=== PATIENT | male | born 1950 | race Caucasian/White ===

== ENCOUNTER 2022-06-25 10:02 | Inpatient (IN) | payer MEDICARE, OTHER ==
[2022-06-25 11:34] LABS: Hemoglobin 14.7 g/dL (13.5-17.5); MDiff Complete? YES; Mean Corpuscular Hemoglobin 31.3 pg (27.0-33.0); Mean Corpuscular Volume 91.9 fl (81.2-95.1); Mean Platelet Volume 11.3 fl (7.4-10.4); Platelet Count 178 10x3/uL (150-450); RBC Distribution Width 13.7 % (11.5-14.5); White Blood Cell (WBC) Count 15.2 10x3/uL (3.5-10.5)
[2022-06-25 11:37] LABS: Bilirubin 3+ (Negative); Blood, Urine 10 (Negative); Clarity Clear (Clear); Glucose, Urine (Dipstick) Normal (Negative); Ketone, Urine 50 mg/dL (Negative); Leukocyte 25 (Negative); Nitrite Negative (Negative); Protein, Urine (Dipstick) 100 mg/dl (Neg-Trace)
[2022-06-25 11:51] LABS: ALT (SGPT) 1135 U/L (8-55); AST (SGOT) 616 U/L (5-34); Albumin 3.9 g/dL (3.4-4.8); Alkaline Phosphatase 283 U/L (40-110); Anion Gap 16 mmol/L (10-20); BUN (Urea Nitrogen) 23 mg/dL (8.4-25.7); Bilirubin, Total 4.9 mg/dL (0.2-1.2); CK (CPK) 118 U/L (30-200); Calc. Creatinine Clearance 0 mL/min (70-130); Calcium 8.4 mg/dL (7.8-10.44); Carbon Dioxide 26 mmol/L (23-31); Chloride 98 mmol/L (98-107); Estimated GFR 85; Globulin 2.3 g/dL (2.4-3.5); Glucose 96 mg/dL (80-115); Lipase 26 U/L (8-78); Protein, Total 6.2 g/dL (5.8-8.1); Sodium 136 mmol/L (136-145)
[2022-06-25 11:59] LABS: SARS-CoV-2 NAA Rapid Test Not Detected (NotDetected)
[2022-06-25 12:06] LABS: Bacteria/HPF Rare-Few HPF (None Seen); RBC/HPF 0-3 HPF (0-3); Squamous Epithelial 0-3 HPF (0-3)
[2022-06-25 12:07] LABS: Sperm/HPF 1+ HPF (None Seen)
[2022-06-25 12:14] LABS: Band 2 % (5-11); Eosinophils 1 % (0-10); Lymphocytes 4 % (21-51); Monocytes 2 % (0-10); Neutrophil 91 % (42-75); Platelet Morphology Comment Appears Adequate
[2022-06-25 12:38] LABS: Acetaminophen Less than 10.0 mcg/mL (10.0-30.0); Alcohol Less than 10 mg/dL (Less than 10); Salicylate Less than 8.0 mg/dL (15.0-30.0)
[2022-06-25] MEDS ORDERED: Ondansetron PF 4 MG/2 ML Vial ONE (13:19)
[2022-06-25] MEDS ORDERED: Iopamidol 300 61% 100 ML VIAL FS ONE (13:37)
[2022-06-25 15:17] LABS: INR-International Normal Ratio 1.3; Prothrombin Time 13.5 sec (9.5-12.1)
[2022-06-25] MEDS ORDERED: Bisacodyl 10 MG SUPP PR SCH (17:45)
[2022-06-25 18:14] VITALS: BMI 29.0
[2022-06-25] MEDS: Sodium Chloride 0.9% 1,000 ML IV SCH (18:52)
[2022-06-25] MEDS: Ondansetron PF 4 MG/2 ML Vial IVP PRN (19:00)
[2022-06-25] MEDS ORDERED: FLU VACC QS2022-23(65YR UP)/PF 240 MCG/0.7 ML SYRINGE IM ONE (19:45)
[2022-06-25 19:55] LABS: Iron 19 ug/dL (65-175); Iron Binding Capacity, Total 269 mcg/dL (261-462)
[2022-06-25] MEDS ORDERED: Acetaminophen/Codeine 30-300mg Tablet PO PRN ×2 (20:47)
[2022-06-25] MEDS: HYDROcodone/Acetaminophen 10/325 mg Tablet PO PRN (21:53)
[2022-06-25] MEDS ORDERED: Amlodipine 5 MG TAB PO SCH (22:00)
[2022-06-25 23:42] LABS: HBCM Index 0.05 S/CO (0-0.79); HBSAg Index 0.25 S/CO (0-0.99); Hep A IgM AB Non-Reactive (NonReactive); Hep A IgM S/CO 0.12 S/CO (0-0.79); Hep B Surf Ag Non-Reactive S/CO (NonReactive); Hep C IgG Ab Non-Reactive (NonReactive); Hep C Index 0.05 S/CO (0-0.79); Hepatitis B Core IgM Abs Non-Reactive (NonReactive)
[2022-06-26 05:09] LABS: INR-International Normal Ratio 1.1; Prothrombin Time 11.9 sec (9.5-12.1)
[2022-06-26 05:17] LABS: ALT (SGPT) 837 U/L (8-55); AST (SGOT) 315 U/L (5-34); Alkaline Phosphatase 294 U/L (40-110); Anion Gap 17 mmol/L (10-20); BUN (Urea Nitrogen) 12 mg/dL (8.4-25.7); Bilirubin, Total 3.3 mg/dL (0.2-1.2); Calc. Creatinine Clearance 102 mL/min (70-130); Calcium 9.5 mg/dL (7.8-10.44); Carbon Dioxide 26 mmol/L (23-31); Chloride 96 mmol/L (98-107); Estimated GFR 98; Globulin 3.6 g/dL (2.4-3.5); Glucose 96 mg/dL (80-115); Potassium 3.5 mmol/L (3.5-5.1); Protein, Total 7.6 g/dL (5.8-8.1); Sodium 135 mmol/L (136-145)
[2022-06-26 05:37] LABS: #Neutrophils 13.8 10x3/uL (1.5-8.4); %Basophils 0.1 % (0.0-2.0); %Eosinophils 0.1 % (0.0-6.0); %Lymphocytes 3.3 % (18.0-47.0); %Monocytes 6.7 % (0.0-10.0); %Neutrophils 89.3 % (40.0-75.0); Hemoglobin 15.8 g/dL (13.5-17.5); Mean Corpuscular HGB CONC 34.6 g/dL (32.0-36.0); Mean Corpuscular Hemoglobin 31.6 pg (27.0-33.0); Mean Corpuscular Volume 91.2 fl (81.2-95.1); Mean Platelet Volume 11.7 fl (7.4-10.4); Platelet Count 153 10x3/uL (150-450); RBC Distribution Width 13.8 % (11.5-14.5); White Blood Cell (WBC) Count 15.5 10x3/uL (3.5-10.5)
[2022-06-26] MEDS: Sodium Chloride 0.9% 1,000 ML IV SCH (05:45)
[2022-06-26] MEDS: HYDROcodone/Acetaminophen 10/325 mg Tablet PO PRN ×2 (05:47→10:18)
[2022-06-26] MEDS ORDERED: hydrALAZINE 20 MG/ML VIAL SLOW IVP SCH (06:30)
[2022-06-26] MEDS: Ondansetron ODT 4 MG TAB PO PRN (10:25)
[2022-06-26] MEDS ORDERED: Communication Order-Pharmacy FS SCH (10:45)
[2022-06-26] MEDS ORDERED: Amlodipine 5 MG TAB PO SCH (10:45)
[2022-06-26] MEDS: cefTRIAXone\\ROCEPHIN 1 GM in Sodium Chloride 0.9% 100 ML IVPB SCH (12:22)
[2022-06-26 16:56] LABS: ANA Symphony (Qualitative) Negative (Negative); ANA Symphony (Quantitative) 0.3 Ratio (< 0.7 Negative); EliA Vaculitis New Method **** NEW METHOD ****; Mitochondrial Ab 1.2 U/mL (<4 Negative); dsDNA IgG Antibody 0.5 IU/mL (<10 Negative)
[2022-06-26] MEDS: Morphine 2 MG/ML VIAL SLOW IVP PRN (17:21)
[2022-06-26] MEDS: Metoprolol Tartrate 50 MG TAB PO SCH (21:14)
[2022-06-26] MEDS ORDERED: Bisacodyl 10 MG SUPP PR SCH (22:30)
[2022-06-27] MEDS: Sodium Chloride 0.9% 1,000 ML IV SCH ×2 (00:08→17:34)
[2022-06-27] MEDS ORDERED: diphenhydrAMINE 25 MG CAP PO SCH (02:45)
[2022-06-27 06:07] LABS: INR-International Normal Ratio 1.1; Prothrombin Time 11.6 sec (9.5-12.1)
[2022-06-27 06:08] LABS: ALT (SGPT) 402 U/L (8-55); AST (SGOT) 78 U/L (5-34); Albumin 3.4 g/dL (3.4-4.8); Alkaline Phosphatase 231 U/L (40-110); Anion Gap 16 mmol/L (10-20); BUN (Urea Nitrogen) 10 mg/dL (8.4-25.7); Calc. Creatinine Clearance 113 mL/min (70-130); Carbon Dioxide 26 mmol/L (23-31); Chloride 99 mmol/L (98-107); Estimated GFR 101; Globulin 2.9 g/dL (2.4-3.5); Glucose 106 mg/dL (80-115); Potassium 3.6 mmol/L (3.5-5.1); Protein, Total 6.3 g/dL (5.8-8.1); Sodium 137 mmol/L (136-145)
[2022-06-27 06:22] LABS: Hemoglobin 14.1 g/dL (13.5-17.5); Mean Corpuscular HGB CONC 35.3 g/dL (32.0-36.0); Mean Corpuscular Hemoglobin 31.5 pg (27.0-33.0); Mean Corpuscular Volume 89.5 fl (81.2-95.1); Mean Platelet Volume 11.8 fl (7.4-10.4); Platelet Count 166 10x3/uL (150-450); RBC Distribution Width 13.8 % (11.5-14.5); Red Blood Cell (RBC) Count 4.47 10x6/uL (4.32-5.72); White Blood Cell (WBC) Count 20.4 10x3/uL (3.5-10.5)
[2022-06-27 06:54] LABS: MDiff Complete? YES
[2022-06-27 06:57] LABS: Band 5 % (5-11); Lymphocytes 3 % (21-51); Monocytes 6 % (0-10); Neutrophil 85 % (42-75); Platelet Morphology Comment Appears Adequate; Reactive Lymphocytes 1 % (0-10)
[2022-06-27 06:58] LABS: RBC Morphology Normal
[2022-06-27] MEDS: cefTRIAXone\\ROCEPHIN 1 GM in Sodium Chloride 0.9% 100 ML IVPB SCH (09:49)
[2022-06-27] MEDS: Morphine 2 MG/ML VIAL SLOW IVP PRN ×3 (09:50→20:42)
[2022-06-27] MEDS: Ondansetron PF 4 MG/2 ML Vial IVP PRN (09:52)
[2022-06-27] MEDS: Amlodipine 5 MG TAB PO SCH (09:52)
[2022-06-27] MEDS: Metoprolol Tartrate 50 MG TAB PO SCH ×2 (09:52→20:43)
[2022-06-27] MEDS: cloNIDine 0.1 MG TAB PO SCH ×2 (09:53→20:43)
[2022-06-27] MEDS: metFORMIN 500 MG TAB PO SCH ×2 (09:53→17:34)
[2022-06-27] MEDS ORDERED: Cepastat Lozenges 1 LOZ PO PRN (11:10)
[2022-06-28] MEDS: Sodium Chloride 0.9% 1,000 ML IV SCH ×3 (02:38→22:04)
[2022-06-28] MEDS: Morphine 2 MG/ML VIAL SLOW IVP PRN ×4 (03:20→22:04)
[2022-06-28 05:53] LABS: INR-International Normal Ratio 1.1; Mean Corpuscular HGB CONC 34.8 g/dL (32.0-36.0); Mean Corpuscular Hemoglobin 31.3 pg (27.0-33.0); Mean Corpuscular Volume 89.9 fl (81.2-95.1); Mean Platelet Volume 11.4 fl (7.4-10.4); Platelet Count 180 10x3/uL (150-450); Prothrombin Time 11.6 sec (9.5-12.1); RBC Distribution Width 14.3 % (11.5-14.5); Red Blood Cell (RBC) Count 4.16 10x6/uL (4.32-5.72); White Blood Cell (WBC) Count 21.1 10x3/uL (3.5-10.5)
[2022-06-28 06:13] LABS: ALT (SGPT) 239 U/L (8-55); AST (SGOT) 45 U/L (5-34); Albumin 3.1 g/dL (3.4-4.8); Alkaline Phosphatase 219 U/L (40-110); Anion Gap 14 mmol/L (10-20); BUN (Urea Nitrogen) 12 mg/dL (8.4-25.7); Calc. Creatinine Clearance 110 mL/min (70-130); Calcium 8.7 mg/dL (7.8-10.44); Carbon Dioxide 25 mmol/L (23-31); Chloride 102 mmol/L (98-107); Estimated GFR 100; Globulin 3.3 g/dL (2.4-3.5); Glucose 99 mg/dL (80-115); Potassium 3.4 mmol/L (3.5-5.1); Protein, Total 6.4 g/dL (5.8-8.1); Sodium 138 mmol/L (136-145)
[2022-06-28 06:27] LABS: MDiff Complete? YES
[2022-06-28 06:30] LABS: Band 5 % (5-11); Lymphocytes 5 % (21-51); Monocytes 10 % (0-10); Neutrophil 80 % (42-75)
[2022-06-28 06:31] LABS: Platelet Morphology Comment Appears Adequate
[2022-06-28 06:32] LABS: RBC Morphology Normal
[2022-06-28] MEDS: cefTRIAXone\\ROCEPHIN 1 GM in Sodium Chloride 0.9% 100 ML IVPB SCH (10:07)
[2022-06-28] MEDS: metFORMIN 500 MG TAB PO SCH ×2 (10:09→16:59)
[2022-06-28] MEDS: Amlodipine 5 MG TAB PO SCH (10:09)
[2022-06-28] MEDS: cloNIDine 0.1 MG TAB PO SCH ×2 (10:10→22:05)
[2022-06-28] MEDS: Metoprolol Tartrate 50 MG TAB PO SCH ×2 (10:10→22:05)
[2022-06-28] MEDS: Ondansetron PF 4 MG/2 ML Vial IVP PRN ×3 (10:11→22:20)
[2022-06-28 12:15] LABS: EBV VCA IgM <36.0 U/mL (0.0-35.9); Nuclear AG IgG (EBNA) AB >600.0 U/mL (0.0-17.9)
[2022-06-28 20:13] LABS: CMV DNA-PCR Test Negative (Negative)
[2022-06-28] MEDS ORDERED: Sodium Chloride 0.65% Nasal 44 ML BOT EA NARE PRN (23:56)
[2022-06-29] MEDS: Piperacillin/Tazobactam 3.375 GM in Sodium Chloride 0.9% 100 ML IVPB SCH ×3 (00:48→16:52)
[2022-06-29] MEDS: Morphine 2 MG/ML VIAL SLOW IVP PRN ×4 (03:48→20:43)
[2022-06-29] MEDS: Ondansetron ODT 4 MG TAB PO PRN ×2 (03:54→17:02)
[2022-06-29] MEDS ORDERED: hydrALAZINE 20 MG/ML VIAL SLOW IVP PRN ×2 (04:16→11:54)
[2022-06-29 04:55] LABS: #Eosinphils 0.1 10x3/uL (0.0-0.5); #Monocytes 1.7 10x3/uL (0.0-1.1); #Neutrophils 16.1 10x3/uL (1.5-8.4); %Basophils 0.1 % (0.0-2.0); %Eosinophils 0.5 % (0.0-6.0); %Lymphocytes 4.5 % (18.0-47.0); %Neutrophils 83.4 % (40.0-75.0); Hemoglobin 12.5 g/dL (13.5-17.5); Mean Corpuscular HGB CONC 34.8 g/dL (32.0-36.0); Mean Corpuscular Hemoglobin 31.5 pg (27.0-33.0); Mean Corpuscular Volume 90.4 fl (81.2-95.1); Mean Platelet Volume 11.3 fl (7.4-10.4); Platelet Count 225 10x3/uL (150-450); RBC Distribution Width 14.5 % (11.5-14.5); Red Blood Cell (RBC) Count 3.97 10x6/uL (4.32-5.72); White Blood Cell (WBC) Count 19.3 10x3/uL (3.5-10.5)
[2022-06-29 04:59] LABS: ALT (SGPT) 184 U/L (8-55); AST (SGOT) 47 U/L (5-34); Albumin 3.1 g/dL (3.4-4.8); Alkaline Phosphatase 237 U/L (40-110); Anion Gap 12 mmol/L (10-20); BUN (Urea Nitrogen) 11 mg/dL (8.4-25.7); Bilirubin, Total 1.8 mg/dL (0.2-1.2); Calc. Creatinine Clearance 120 mL/min (70-130); Calcium 8.7 mg/dL (7.8-10.44); Carbon Dioxide 29 mmol/L (23-31); Chloride 96 mmol/L (98-107); Estimated GFR 103; Globulin 3.4 g/dL (2.4-3.5); Glucose 98 mg/dL (80-115); Potassium 3.3 mmol/L (3.5-5.1); Protein, Total 6.5 g/dL (5.8-8.1); Sodium 134 mmol/L (136-145)
[2022-06-29 07:28] LABS: Magnesium 1.6 mg/dL (1.6-2.6); Phosphorus 2.1 mg/dL (2.3-4.7)
[2022-06-29] MEDS ORDERED: Potassium Chloride 20 MEQ in Premix Bag 1 BAG IVPB SCH (08:00)
[2022-06-29] MEDS: Amlodipine 5 MG TAB PO SCH (10:25)
[2022-06-29] MEDS: metFORMIN 500 MG TAB PO SCH ×2 (10:26→17:38)
[2022-06-29] MEDS: Metoprolol Tartrate 50 MG TAB PO SCH ×2 (10:26→20:42)
[2022-06-29] MEDS: Polyethylene Glycol 3350 17 GM Packet PO SCH (10:27)
[2022-06-29] MEDS: cloNIDine 0.1 MG TAB PO SCH ×3 (10:30→20:43)
[2022-06-29] MEDS: Ondansetron PF 4 MG/2 ML Vial IVP PRN (10:48)
[2022-06-29] MEDS ORDERED: Labetalol HCl 100 MG/20 ML VIAL SLOW IVP PRN (11:54)
[2022-06-29] MEDS ORDERED: Moisturizing Cream (Eucerin) 113 GM JAR TOP PRN (11:54)
[2022-06-29] MEDS ORDERED: Artificial Tear Sol 15 ML BOT EA EYE PRN (11:54)
[2022-06-29] MEDS ORDERED: Electrolyte Replacement Protocol 1 EACH FS SCH (12:00)
[2022-06-29] MEDS ORDERED: Magnesium 2 GM/50 ML(in water) 2 GM in Premix Bag 1 BAG IVPB SCH (12:30)
[2022-06-29] MEDS: Enoxaparin Sodium 40 MG/0.4 ML SYRINGE SC SCH (20:42)
[2022-06-30 04:32] LABS: ALT (SGPT) 137 U/L (8-55); AST (SGOT) 52 U/L (5-34); Albumin 2.9 g/dL (3.4-4.8); Alkaline Phosphatase 222 U/L (40-110); Anion Gap 14 mmol/L (10-20); BUN (Urea Nitrogen) 15 mg/dL (8.4-25.7); Bilirubin, Total 1.6 mg/dL (0.2-1.2); Calc. Creatinine Clearance 116 mL/min (70-130); Calcium 8.5 mg/dL (7.8-10.44); Carbon Dioxide 24 mmol/L (23-31); Chloride 101 mmol/L (98-107); Estimated GFR 102; Globulin 3.3 g/dL (2.4-3.5); Glucose 96 mg/dL (80-115); Potassium 3.8 mmol/L (3.5-5.1); Protein, Total 6.2 g/dL (5.8-8.1); Sodium 135 mmol/L (136-145)
[2022-06-30] MEDS ORDERED: Sodium Chloride 0.9% 100 ML ONE (04:44)
[2022-06-30 04:51] LABS: #Eosinphils 0.1 10x3/uL (0.0-0.5); #Monocytes 1.7 10x3/uL (0.0-1.1); #Neutrophils 14.9 10x3/uL (1.5-8.4); %Basophils 0.2 % (0.0-2.0); %Eosinophils 0.5 % (0.0-6.0); %Lymphocytes 6.7 % (18.0-47.0); %Monocytes 9.1 % (0.0-10.0); %Neutrophils 80.3 % (40.0-75.0); Hemoglobin 11.4 g/dL (13.5-17.5); Mean Corpuscular HGB CONC 34.7 g/dL (32.0-36.0); Mean Corpuscular Hemoglobin 31.4 pg (27.0-33.0); Mean Corpuscular Volume 90.6 fl (81.2-95.1); Mean Platelet Volume 11.1 fl (7.4-10.4); Platelet Count 268 10x3/uL (150-450); RBC Distribution Width 14.4 % (11.5-14.5); Red Blood Cell (RBC) Count 3.63 10x6/uL (4.32-5.72); White Blood Cell (WBC) Count 18.6 10x3/uL (3.5-10.5)
[2022-06-30] MEDS ORDERED: Magnesium 2 GM/50 ML(in water) 2 GM in Premix Bag 1 BAG IVPB SCH (05:00)
[2022-06-30] MEDS: Sodium Chloride 0.9% 1,000 ML IV SCH ×3 (05:00→10:13)
[2022-06-30] MEDS: Piperacillin/Tazobactam 3.375 GM in Sodium Chloride 0.9% 100 ML IVPB SCH ×4 (05:01→22:31)
[2022-06-30] MEDS: Morphine 2 MG/ML VIAL SLOW IVP PRN ×2 (09:59→22:32)
[2022-06-30] MEDS: Metoprolol Tartrate 50 MG TAB PO SCH ×2 (10:01→22:32)
[2022-06-30] MEDS: Amlodipine 5 MG TAB PO SCH (10:03)
[2022-06-30] MEDS: cloNIDine 0.1 MG TAB PO SCH ×3 (10:03→22:31)
[2022-06-30] MEDS: Polyethylene Glycol 3350 17 GM Packet PO SCH ×2 (10:04→10:05)
[2022-06-30] MEDS: metFORMIN 500 MG TAB PO SCH ×2 (11:55→16:14)
[2022-06-30 17:14] LABS: Hepatitis E Virus IgG ABS Negative (Negative)
[2022-06-30] MEDS: clonazePAM 1 MG TAB PO PRN (18:30)
[2022-06-30] MEDS: Benzonatate 100 MG CAP PO PRN (22:32)
[2022-06-30] MEDS: Ondansetron PF 4 MG/2 ML Vial IVP PRN (22:32)
[2022-06-30] MEDS: Enoxaparin Sodium 40 MG/0.4 ML SYRINGE SC SCH (22:32)
[2022-07-01] MEDS: Morphine 2 MG/ML VIAL SLOW IVP PRN ×2 (03:35→14:27)
[2022-07-01] MEDS: Ondansetron PF 4 MG/2 ML Vial IVP PRN ×2 (03:36→14:27)
[2022-07-01] MEDS: Sodium Chloride 0.9% 1,000 ML IV SCH ×2 (03:36→20:31)
[2022-07-01 05:34] LABS: ALT (SGPT) 126 U/L (8-55); AST (SGOT) 67 U/L (5-34); Albumin 2.9 g/dL (3.4-4.8); Alkaline Phosphatase 242 U/L (40-110); Anion Gap 13 mmol/L (10-20); BUN (Urea Nitrogen) 13 mg/dL (8.4-25.7); Bilirubin, Total 1.4 mg/dL (0.2-1.2); Calc. Creatinine Clearance 120 mL/min (70-130); Calcium 8.6 mg/dL (7.8-10.44); Carbon Dioxide 27 mmol/L (23-31); Chloride 102 mmol/L (98-107); Estimated GFR 103; Globulin 3.2 g/dL (2.4-3.5); Glucose 99 mg/dL (80-115); Magnesium 1.8 mg/dL (1.6-2.6); Potassium 4.1 mmol/L (3.5-5.1); Protein, Total 6.1 g/dL (5.8-8.1); Sodium 138 mmol/L (136-145)
[2022-07-01 05:36] LABS: INR-International Normal Ratio 1.1; PTT 30.1 sec (22.0-33.0); Prothrombin Time 11.6 sec (9.5-12.1)
[2022-07-01 05:48] LABS: #Basophils 0.1 10x3/uL (0.0-0.2); #Eosinphils 0.1 10x3/uL (0.0-0.5); #Monocytes 1.6 10x3/uL (0.0-1.1); #Neutrophils 16.6 10x3/uL (1.5-8.4); %Basophils 0.3 % (0.0-2.0); %Eosinophils 0.7 % (0.0-6.0); %Lymphocytes 5.7 % (18.0-47.0); %Neutrophils 83.1 % (40.0-75.0); Hemoglobin 11.1 g/dL (13.5-17.5); Mean Corpuscular HGB CONC 34.3 g/dL (32.0-36.0); Mean Corpuscular Hemoglobin 31.3 pg (27.0-33.0); Mean Corpuscular Volume 91.3 fl (81.2-95.1); Mean Platelet Volume 11.4 fl (7.4-10.4); Platelet Count 337 10x3/uL (150-450); RBC Distribution Width 14.6 % (11.5-14.5); Red Blood Cell (RBC) Count 3.55 10x6/uL (4.32-5.72)
[2022-07-01] MEDS ORDERED: Magnesium 2 GM/50 ML(in water) 2 GM in Premix Bag 1 BAG IVPB SCH (06:00)
[2022-07-01] MEDS ORDERED: Fentanyl 100 MCG/2 ML VIAL ONE (08:15)
[2022-07-01] MEDS ORDERED: Midazolam HCl 2 mg/2 ml Vial ONE (08:15)
[2022-07-01] MEDS ORDERED: Sodium Bicarbonate 2.5 MEQ/5 ML VIAL ONE (08:18)
[2022-07-01] MEDS: Amlodipine 5 MG TAB PO SCH (09:59)
[2022-07-01] MEDS: Bupropion 150 MG XL TAB PO SCH (09:59)
[2022-07-01] MEDS: metFORMIN 500 MG TAB PO SCH ×2 (09:59→16:07)
[2022-07-01] MEDS: Benzonatate 100 MG CAP PO PRN (10:00)
[2022-07-01] MEDS: Piperacillin/Tazobactam 3.375 GM in Sodium Chloride 0.9% 100 ML IVPB SCH ×3 (10:00→23:14)
[2022-07-01] MEDS: cloNIDine 0.1 MG TAB PO SCH ×3 (10:00→20:35)
[2022-07-01] MEDS: Metoprolol Tartrate 50 MG TAB PO SCH ×2 (10:00→20:35)
[2022-07-01] MEDS: Polyethylene Glycol 3350 17 GM Packet PO SCH (10:11)
[2022-07-01] MEDS: Enoxaparin Sodium 40 MG/0.4 ML SYRINGE SC SCH (20:32)
[2022-07-01] MEDS ORDERED: Loperamide HCl 2 MG CAP PO SCH (23:15)
[2022-07-02] MEDS: Ondansetron PF 4 MG/2 ML Vial IVP PRN ×3 (01:17→21:11)
[2022-07-02] MEDS: GUAIFENESIN SF SOLN 200 MG/10 ML UDCUP PO PRN (01:27)
[2022-07-02 04:18] LABS: ALT (SGPT) 121 U/L (8-55); AST (SGOT) 65 U/L (5-34); Alkaline Phosphatase 253 U/L (40-110); Anion Gap 15 mmol/L (10-20); BUN (Urea Nitrogen) 9 mg/dL (8.4-25.7); Bilirubin, Total 1.2 mg/dL (0.2-1.2); Calc. Creatinine Clearance 136 mL/min (70-130); Calcium 8.9 mg/dL (7.8-10.44); Carbon Dioxide 25 mmol/L (23-31); Chloride 100 mmol/L (98-107); Estimated GFR 107; Globulin 3.5 g/dL (2.4-3.5); Glucose 99 mg/dL (80-115); Magnesium 1.7 mg/dL (1.6-2.6); Potassium 3.4 mmol/L (3.5-5.1); Protein, Total 6.5 g/dL (5.8-8.1); Sodium 137 mmol/L (136-145)
[2022-07-02] MEDS ORDERED: Magnesium 2 GM/50 ML(in water) 2 GM in Premix Bag 1 BAG IVPB SCH (05:00)
[2022-07-02] MEDS ORDERED: Potassium Chloride 20 MEQ TAB PO SCH (05:00)
[2022-07-02] MEDS ORDERED: Vancomycin 1.5 GRAM/300 ML BAG 1.5 GM in Premix Bag 1 BAG IVPB SCH (08:00)
[2022-07-02] MEDS: Morphine 2 MG/ML VIAL SLOW IVP PRN ×2 (08:06→13:05)
[2022-07-02] MEDS: Metoprolol Tartrate 50 MG TAB PO SCH ×2 (08:07→20:34)
[2022-07-02] MEDS: Amlodipine 5 MG TAB PO SCH (08:07)
[2022-07-02] MEDS: cloNIDine 0.1 MG TAB PO SCH ×3 (08:07→20:35)
[2022-07-02] MEDS: metFORMIN 500 MG TAB PO SCH ×2 (08:07→14:59)
[2022-07-02] MEDS: Piperacillin/Tazobactam 3.375 GM in Sodium Chloride 0.9% 100 ML IVPB SCH ×2 (08:07→14:59)
[2022-07-02] MEDS: Bupropion 150 MG XL TAB PO SCH (08:07)
[2022-07-02] MEDS: Losartan 25 MG TAB PO SCH ×2 (08:08→20:35)
[2022-07-02] MEDS: Polyethylene Glycol 3350 17 GM Packet PO SCH (08:08)
[2022-07-02] MEDS ORDERED: Vancomycin 1 GM in Premix Bag 1 BAG IVPB SCH (09:00)
[2022-07-02 13:51] LABS: #Basophils 0.1 10x3/uL (0.0-0.2); #Eosinphils 0.2 10x3/uL (0.0-0.5); #Monocytes 1.3 10x3/uL (0.0-1.1); #Neutrophils 14.8 10x3/uL (1.5-8.4); %Basophils 0.4 % (0.0-2.0); %Eosinophils 1.1 % (0.0-6.0); %Lymphocytes 7.8 % (18.0-47.0); %Monocytes 6.9 % (0.0-10.0); %Neutrophils 81.3 % (40.0-75.0); Hemoglobin 12.2 g/dL (13.5-17.5); Mean Corpuscular HGB CONC 33.8 g/dL (32.0-36.0); Mean Corpuscular Hemoglobin 31.7 pg (27.0-33.0); Mean Corpuscular Volume 93.8 fl (81.2-95.1); Mean Platelet Volume 11.7 fl (7.4-10.4); Platelet Count 427 10x3/uL (150-450); RBC Distribution Width 15.2 % (11.5-14.5); Red Blood Cell (RBC) Count 3.85 10x6/uL (4.32-5.72); White Blood Cell (WBC) Count 18.2 10x3/uL (3.5-10.5)
[2022-07-02] MEDS: Vancomycin HCl 1 GM in Sodium Chloride 0.9% 250 ML 250 ML IVPB SCH (20:33)
[2022-07-02] MEDS: Enoxaparin Sodium 40 MG/0.4 ML SYRINGE SC SCH (20:48)
[2022-07-02] MEDS: Melatonin 3 MG TAB PO PRN (21:11)
[2022-07-03] MEDS: Piperacillin/Tazobactam 3.375 GM in Sodium Chloride 0.9% 100 ML IVPB SCH ×3 (00:29→15:00)
[2022-07-03] MEDS: Morphine 2 MG/ML VIAL SLOW IVP PRN ×4 (04:17→21:14)
[2022-07-03] MEDS: Ondansetron PF 4 MG/2 ML Vial IVP PRN (04:21)
[2022-07-03] MEDS: Vancomycin HCl 1 GM in Sodium Chloride 0.9% 250 ML 250 ML IVPB SCH ×2 (09:03→21:05)
[2022-07-03] MEDS: Metoprolol Tartrate 50 MG TAB PO SCH ×2 (09:04→21:08)
[2022-07-03] MEDS: cloNIDine 0.1 MG TAB PO SCH ×3 (09:04→21:06)
[2022-07-03] MEDS: clonazePAM 1 MG TAB PO PRN (09:04)
[2022-07-03] MEDS: Amlodipine 5 MG TAB PO SCH (09:04)
[2022-07-03] MEDS: Losartan 25 MG TAB PO SCH ×2 (09:04→21:08)
[2022-07-03] MEDS: metFORMIN 500 MG TAB PO SCH (09:04)
[2022-07-03] MEDS: Bupropion 150 MG XL TAB PO SCH (09:04)
[2022-07-03] MEDS: Polyethylene Glycol 3350 17 GM Packet PO SCH (09:05)
[2022-07-03 09:29] LABS: #Basophils 0.1 10x3/uL (0.0-0.2); #Eosinphils 0.2 10x3/uL (0.0-0.5); #Monocytes 0.9 10x3/uL (0.0-1.1); #Neutrophils 11.1 10x3/uL (1.5-8.4); %Basophils 0.4 % (0.0-2.0); %Eosinophils 1.7 % (0.0-6.0); %Lymphocytes 9.7 % (18.0-47.0); %Monocytes 6.2 % (0.0-10.0); %Neutrophils 79.6 % (40.0-75.0); Hemoglobin 11.6 g/dL (13.5-17.5); Mean Corpuscular HGB CONC 34.6 g/dL (32.0-36.0); Mean Corpuscular Hemoglobin 31.5 pg (27.0-33.0); Platelet Count 527 10x3/uL (150-450); RBC Distribution Width 14.6 % (11.5-14.5); Red Blood Cell (RBC) Count 3.68 10x6/uL (4.32-5.72)
[2022-07-03 09:48] LABS: Magnesium 1.6 mg/dL (1.6-2.6); Phosphorus 3.1 mg/dL (2.3-4.7)
[2022-07-03 09:50] LABS: ALT (SGPT) 155 U/L (8-55); AST (SGOT) 78 U/L (5-34); Albumin 2.8 g/dL (3.4-4.8); Alkaline Phosphatase 283 U/L (40-110); Anion Gap 16 mmol/L (10-20); BUN (Urea Nitrogen) 11 mg/dL (8.4-25.7); Bilirubin, Total 0.9 mg/dL (0.2-1.2); Calc. Creatinine Clearance 116 mL/min (70-130); Calcium 8.5 mg/dL (7.8-10.44); Carbon Dioxide 23 mmol/L (23-31); Chloride 102 mmol/L (98-107); Estimated GFR 102; Globulin 3.2 g/dL (2.4-3.5); Glucose 134 mg/dL (80-115); Sodium 137 mmol/L (136-145)
[2022-07-03] MEDS ORDERED: Magnesium 2 GM/50 ML(in water) 2 GM in Premix Bag 1 BAG IVPB SCH (10:00)
[2022-07-03] MEDS: Lactated Ringer's 1,000 ML IV SCH (10:32)
[2022-07-03 20:25] LABS: Vancomycin, Trough 10.4 ug/mL
[2022-07-03] MEDS: Enoxaparin Sodium 40 MG/0.4 ML SYRINGE SC SCH (21:06)
[2022-07-03] MEDS: Ondansetron ODT 4 MG TAB PO PRN (21:10)
[2022-07-03] MEDS: Melatonin 3 MG TAB PO PRN (21:14)
[2022-07-04] MEDS: Lactated Ringer's 1,000 ML IV SCH (00:38)
[2022-07-04] MEDS: Piperacillin/Tazobactam 3.375 GM in Sodium Chloride 0.9% 100 ML IVPB SCH ×4 (00:39→23:29)
[2022-07-04 04:54] LABS: Magnesium 3.9 mg/dL (1.6-2.6)
[2022-07-04 08:40] LABS: #Basophils 0.1 10x3/uL (0.0-0.2); #Eosinphils 0.3 10x3/uL (0.0-0.5); #Monocytes 0.9 10x3/uL (0.0-1.1); #Neutrophils 9.4 10x3/uL (1.5-8.4); %Basophils 0.5 % (0.0-2.0); %Eosinophils 2.1 % (0.0-6.0); %Lymphocytes 12.2 % (18.0-47.0); %Monocytes 6.9 % (0.0-10.0); Hemoglobin 12.2 g/dL (13.5-17.5); Mean Corpuscular HGB CONC 33.3 g/dL (32.0-36.0); Mean Corpuscular Volume 93.1 fl (81.2-95.1); Mean Platelet Volume 10.5 fl (7.4-10.4); Platelet Count 590 10x3/uL (150-450); RBC Distribution Width 14.8 % (11.5-14.5); Red Blood Cell (RBC) Count 3.93 10x6/uL (4.32-5.72); White Blood Cell (WBC) Count 12.3 10x3/uL (3.5-10.5)
[2022-07-04 09:03] LABS: ALT (SGPT) 128 U/L (8-55); AST (SGOT) 47 U/L (5-34); Alkaline Phosphatase 248 U/L (40-110); Anion Gap 12 mmol/L (10-20); BUN (Urea Nitrogen) 11 mg/dL (8.4-25.7); Bilirubin, Total 0.8 mg/dL (0.2-1.2); Calc. Creatinine Clearance 110 mL/min (70-130); Calcium 8.9 mg/dL (7.8-10.44); Carbon Dioxide 30 mmol/L (23-31); Chloride 102 mmol/L (98-107); Estimated GFR 100; Globulin 3.4 g/dL (2.4-3.5); Glucose 112 mg/dL (80-115); Protein, Total 6.4 g/dL (5.8-8.1); Sodium 140 mmol/L (136-145)
[2022-07-04] MEDS: Vancomycin HCl 1 GM in Sodium Chloride 0.9% 250 ML 250 ML IVPB SCH ×2 (10:01→20:59)
[2022-07-04] MEDS: Polyethylene Glycol 3350 17 GM Packet PO SCH (10:02)
[2022-07-04] MEDS: Bupropion 150 MG XL TAB PO SCH (10:02)
[2022-07-04] MEDS: Amlodipine 5 MG TAB PO SCH (10:03)
[2022-07-04] MEDS: cloNIDine 0.1 MG TAB PO SCH ×3 (10:03→21:03)
[2022-07-04] MEDS: Losartan 25 MG TAB PO SCH ×2 (10:03→21:00)
[2022-07-04] MEDS: Metoprolol Tartrate 50 MG TAB PO SCH ×2 (10:04→21:03)
[2022-07-04] MEDS: clonazePAM 1 MG TAB PO PRN (10:21)
[2022-07-04] MEDS: Morphine 2 MG/ML VIAL SLOW IVP PRN (10:22)
[2022-07-04] MEDS: Enoxaparin Sodium 40 MG/0.4 ML SYRINGE SC SCH (21:00)
[2022-07-05] MEDS: Bupropion 150 MG XL TAB PO SCH (08:39)
[2022-07-05] MEDS: Metoprolol Tartrate 50 MG TAB PO SCH ×2 (08:39→22:15)
[2022-07-05] MEDS: Losartan 25 MG TAB PO SCH ×2 (08:39→22:16)
[2022-07-05] MEDS: cloNIDine 0.1 MG TAB PO SCH ×3 (08:39→22:16)
[2022-07-05] MEDS: Vancomycin HCl 1 GM in Sodium Chloride 0.9% 250 ML 250 ML IVPB SCH (08:39)
[2022-07-05] MEDS: Amlodipine 5 MG TAB PO SCH (08:39)
[2022-07-05] MEDS: Polyethylene Glycol 3350 17 GM Packet PO SCH (08:40)
[2022-07-05] MEDS: Morphine 2 MG/ML VIAL SLOW IVP PRN ×2 (08:40→22:28)
[2022-07-05 08:51] LABS: #Basophils 0.1 10x3/uL (0.0-0.2); #Eosinphils 0.2 10x3/uL (0.0-0.5); #Monocytes 0.9 10x3/uL (0.0-1.1); #Neutrophils 10.1 10x3/uL (1.5-8.4); %Basophils 0.7 % (0.0-2.0); %Eosinophils 1.8 % (0.0-6.0); %Lymphocytes 13.1 % (18.0-47.0); %Monocytes 6.4 % (0.0-10.0); %Neutrophils 75.4 % (40.0-75.0); Hemoglobin 12.6 g/dL (13.5-17.5); Mean Corpuscular HGB CONC 34.2 g/dL (32.0-36.0); Mean Corpuscular Hemoglobin 32.1 pg (27.0-33.0); Mean Corpuscular Volume 93.6 fl (81.2-95.1); Mean Platelet Volume 10.6 fl (7.4-10.4); Platelet Count 679 10x3/uL (150-450); RBC Distribution Width 14.6 % (11.5-14.5); Red Blood Cell (RBC) Count 3.93 10x6/uL (4.32-5.72); White Blood Cell (WBC) Count 13.4 10x3/uL (3.5-10.5)
[2022-07-05] MEDS: GUAIFENESIN SF SOLN 200 MG/10 ML UDCUP PO PRN ×2 (08:52→22:24)
[2022-07-05] MEDS: Benzonatate 100 MG CAP PO PRN (08:52)
[2022-07-05] MEDS: clonazePAM 1 MG TAB PO PRN (08:52)
[2022-07-05 09:53] LABS: ALT (SGPT) 110 U/L (8-55); AST (SGOT) 41 U/L (5-34); Albumin 3.2 g/dL (3.4-4.8); Alkaline Phosphatase 245 U/L (40-110); Anion Gap 17 mmol/L (10-20); BUN (Urea Nitrogen) 13 mg/dL (8.4-25.7); Bilirubin, Total 0.6 mg/dL (0.2-1.2); Calc. Creatinine Clearance 110 mL/min (70-130); Calcium 9.2 mg/dL (7.8-10.44); Carbon Dioxide 27 mmol/L (23-31); Chloride 102 mmol/L (98-107); Estimated GFR 100; Globulin 3.6 g/dL (2.4-3.5); Glucose 114 mg/dL (80-115); Potassium 3.9 mmol/L (3.5-5.1); Protein, Total 6.8 g/dL (5.8-8.1); Sodium 142 mmol/L (136-145)
[2022-07-05] MEDS: Piperacillin/Tazobactam 3.375 GM in Sodium Chloride 0.9% 100 ML IVPB SCH (10:10)
[2022-07-05] MEDS: cefTRIAXone\\ROCEPHIN 2 GM in Sodium Chloride 0.9% 100 ML IVPB SCH (16:01)
[2022-07-05] MEDS: Enoxaparin Sodium 40 MG/0.4 ML SYRINGE SC SCH (22:15)
[2022-07-05] MEDS: Aspirin 81 mg Enteric Coated Tablet PO SCH (22:15)
[2022-07-05] MEDS: Ondansetron PF 4 MG/2 ML Vial IVP PRN (22:29)
[2022-07-06] MEDS ORDERED: Allopurinol 100 MG TAB PO SCH (09:00)
[2022-07-06 09:16] LABS: #Basophils 0.1 10x3/uL (0.0-0.2); #Eosinphils 0.3 10x3/uL (0.0-0.5); #Monocytes 0.8 10x3/uL (0.0-1.1); #Neutrophils 8.7 10x3/uL (1.5-8.4); %Basophils 0.7 % (0.0-2.0); %Eosinophils 2.1 % (0.0-6.0); %Lymphocytes 16.4 % (18.0-47.0); %Monocytes 6.4 % (0.0-10.0); %Neutrophils 71.2 % (40.0-75.0); Hemoglobin 12.9 g/dL (13.5-17.5); Mean Corpuscular HGB CONC 33.8 g/dL (32.0-36.0); Mean Corpuscular Hemoglobin 31.6 pg (27.0-33.0); Mean Corpuscular Volume 93.6 fl (81.2-95.1); Mean Platelet Volume 10.3 fl (7.4-10.4); Platelet Count 734 10x3/uL (150-450); RBC Distribution Width 14.6 % (11.5-14.5); Red Blood Cell (RBC) Count 4.08 10x6/uL (4.32-5.72); White Blood Cell (WBC) Count 12.3 10x3/uL (3.5-10.5)
[2022-07-06] MEDS: Aspirin 81 mg Enteric Coated Tablet PO SCH (09:22)
[2022-07-06] MEDS: Metoprolol Tartrate 50 MG TAB PO SCH (09:22)
[2022-07-06] MEDS: Amlodipine 5 MG TAB PO SCH (09:23)
[2022-07-06] MEDS: cloNIDine 0.1 MG TAB PO SCH ×2 (09:23→15:46)
[2022-07-06] MEDS: Polyethylene Glycol 3350 17 GM Packet PO SCH (09:23)
[2022-07-06] MEDS: Losartan 25 MG TAB PO SCH (09:23)
[2022-07-06] MEDS: Bupropion 150 MG XL TAB PO SCH (09:23)
[2022-07-06] MEDS: Morphine 2 MG/ML VIAL SLOW IVP PRN (09:24)
[2022-07-06 09:32] LABS: ALT (SGPT) 96 U/L (8-55); AST (SGOT) 33 U/L (5-34); Albumin 3.3 g/dL (3.4-4.8); Alkaline Phosphatase 211 U/L (40-110); Anion Gap 14 mmol/L (10-20); BUN (Urea Nitrogen) 16 mg/dL (8.4-25.7); Bilirubin, Total 0.6 mg/dL (0.2-1.2); Calc. Creatinine Clearance 111 mL/min (70-130); Calcium 8.9 mg/dL (7.8-10.44); Carbon Dioxide 29 mmol/L (23-31); Chloride 103 mmol/L (98-107); Estimated GFR 100; Globulin 3.5 g/dL (2.4-3.5); Glucose 117 mg/dL (80-115); Potassium 3.9 mmol/L (3.5-5.1); Protein, Total 6.8 g/dL (5.8-8.1); Sodium 142 mmol/L (136-145)
[2022-07-06] MEDS: cefTRIAXone\\ROCEPHIN 2 GM in Sodium Chloride 0.9% 100 ML IVPB SCH (15:45)
[2022-07-06] MEDS: Ondansetron PF 4 MG/2 ML Vial IVP PRN (15:46)
[2022-07-06 16:43] VITALS: BP 143/65; TEMP 98.4
== END 2022-07-06 19:13 | DRG 871 ==
LOC: CSHERS 10:02 → CSHTELE 17:56
PROVIDERS: ADMIT Family Medicine; ATTEND Internal Medicine
PROC: 3E03329 Introduction of Other Anti-infective into Peripheral Vein, Percutaneous Approach (ICD-10-PCS; 2022-06-25)
PROC: 0F9430Z Drainage of Gallbladder with Drainage Device, Percutaneous Approach (ICD-10-PCS; principal; 2022-07-01)
DX: A41.9 Sepsis, unspecified organism (principal); K72.00 Acute and subacute hepatic failure without coma; K80.00 Calculus of gallbladder with acute cholecystitis without obstruction; N30.00 Acute cystitis without hematuria; I12.9 Hypertensive chronic kidney disease with stage 1 through stage 4 chronic kidney disease, or unspecified chronic kidney disease; E78.5 Hyperlipidemia, unspecified; E11.22 Type 2 diabetes mellitus with diabetic chronic kidney disease; M10.9 Gout, unspecified; N18.9 Chronic kidney disease, unspecified; E86.0 Dehydration; F41.9 Anxiety disorder, unspecified; R04.0 Epistaxis; R13.10 Dysphagia, unspecified; R41.0 Disorientation, unspecified; Z20.822 Contact with and (suspected) exposure to COVID-19; Z88.8 Allergy status to other drugs, medicaments and biological substances; Z79.82 Long term (current) use of aspirin; Z79.84 Long term (current) use of oral hypoglycemic drugs; Z79.899 Other long term (current) drug therapy; Z98.890 Other specified postprocedural states; Z87.891 Personal history of nicotine dependence
CPT/HCPCS: 36415; 36416; 49020; 71045; 74177; 74230; 76700; 76705; 78226; 80053; 80074; 80202; 80307; 81003; 81015; 82103; 82248; 82550; 83516; 83540; 83550; 83605; 83690; 83735; 83880; 84100; 84145; 84484; 85025; 85610; 85730; 86015; 86038; 86225; 86664; 86665; 86790; 87040; 87070; 87077; 87086; 87186; 87205; 87497; 87811; 93005; 93010; 94760; 99152; 99153; A9537; J0360; J0696; J1650; J2250; J2270; J2405; J2543; J3010; J3370; J3475; J3480; J3490; J7050; J7120; Q0162; Q9967

== ENCOUNTER 2022-09-22 08:08 | Day surgery (SDC) | payer MEDICARE ==
[2022-09-20 14:41] VITALS: BMI 27.4
[2022-09-22] MEDS ORDERED: EPINEPHrine 1 MG/ML AMP ONE (09:31)
[2022-09-22] MEDS ORDERED: Bupivacaine PF 0.5% 30 ML VIAL ONE (09:31)
[2022-09-22] MEDS ORDERED: CEFAZOLIN 2 GM VIAL ONE (09:55)
[2022-09-22] MEDS ORDERED: Rocuronium Bromide 10 MG/ML (10ML VIAL) ONE (10:00)
[2022-09-22] MEDS ORDERED: PROPOFOL 20 ML ONE (10:00)
[2022-09-22] MEDS ORDERED: Fentanyl 100 MCG/2 ML VIAL ONE (10:00)
[2022-09-22] MEDS ORDERED: Dexamethasone 4 mg/ml Vial ONE (10:26)
[2022-09-22] MEDS ORDERED: Ondansetron PF 4 MG/2 ML Vial ONE (11:27)
[2022-09-22] MEDS ORDERED: Glycopyrrolate 0.2 MG/ML 5 ML SYRINGE ONE (11:29)
[2022-09-22] MEDS ORDERED: Acetaminophen 325 MG TAB PO PRN (12:18)
[2022-09-22] MEDS ORDERED: HYDROcodone/Acetaminophen 5/325 mg Tablet PO PRN (12:18)
== END 2022-09-22 14:10 | disposition home or self-care (01) ==
LOC: CSHSDC 08:08
PROVIDERS: ATTEND Surgery
PROC: 0FT44ZZ Resection of Gallbladder, Percutaneous Endoscopic Approach (ICD-10-PCS; principal; 2022-09-22)
DX: K81.1 Chronic cholecystitis (principal); K66.0 Peritoneal adhesions (postprocedural) (postinfection); R53.81 Other malaise; E11.9 Type 2 diabetes mellitus without complications; J45.909 Unspecified asthma, uncomplicated; I10 Essential (primary) hypertension; K21.9 Gastro-esophageal reflux disease without esophagitis; G47.33 Obstructive sleep apnea (adult) (pediatric); E78.5 Hyperlipidemia, unspecified; Z87.891 Personal history of nicotine dependence; Z88.8 Allergy status to other drugs, medicaments and biological substances; Z79.51 Long term (current) use of inhaled steroids; Z79.899 Other long term (current) drug therapy; Z79.84 Long term (current) use of oral hypoglycemic drugs
CPT/HCPCS: 47562; C1776; 88304; J0171; J1100; J2405; J2704; J3010; S0020

== ENCOUNTER 2022-11-25 15:22 | Emergency (ER) | payer MEDICARE, OTHER ==
[2022-11-25] MEDS ORDERED: Morphine 4 MG/ML VIAL ONE (15:58)
[2022-11-25] MEDS ORDERED: Ondansetron PF 4 MG/2 ML Vial ONE (15:58)
[2022-11-25 16:09] LABS: ALT (SGPT) 31 U/L (8-55); AST (SGOT) 41 U/L (5-34); Albumin 4.3 g/dL (3.4-4.8); Alkaline Phosphatase 84 U/L (40-110); Anion Gap 19 mmol/L (10-20); BUN (Urea Nitrogen) 14 mg/dL (8.4-25.7); Bilirubin, Total 0.4 mg/dL (0.2-1.2); Calc. Creatinine Clearance 0 mL/min (70-130); Calcium 9.2 mg/dL (7.8-10.44); Carbon Dioxide 21 mmol/L (23-31); Chloride 106 mmol/L (98-107); Estimated GFR 94; Globulin 2.6 g/dL (2.4-3.5); Glucose 97 mg/dL (80-115); Potassium 4.1 mmol/L (3.5-5.1); Protein, Total 6.9 g/dL (5.8-8.1); Sodium 142 mmol/L (136-145)
[2022-11-25 16:11] LABS: #Eosinphils 0.3 10x3/uL (0.0-0.5); #Monocytes 0.9 10x3/uL (0.0-1.1); #Neutrophils 7.2 10x3/uL (1.5-8.4); %Basophils 0.3 % (0.0-2.0); %Eosinophils 2.7 % (0.0-6.0); %Lymphocytes 16.2 % (18.0-47.0); %Monocytes 8.5 % (0.0-10.0); %Neutrophils 72.1 % (40.0-75.0); Hemoglobin 15.1 g/dL (13.5-17.5); Mean Corpuscular HGB CONC 31.9 g/dL (32.0-36.0); Mean Corpuscular Hemoglobin 30.6 pg (27.0-33.0); Mean Corpuscular Volume 95.9 fl (81.2-95.1); Mean Platelet Volume 11.4 fl (7.4-10.4); Platelet Count 166 10x3/uL (150-450); Red Blood Cell (RBC) Count 4.93 10x6/uL (4.32-5.72)
[2022-11-25 16:12] LABS: Platelet Morphology Comment Appears Adequate; RBC Morphology Normal
[2022-11-25 17:34] LABS: Bilirubin Neg (Negative); Blood, Urine Negative (Negative); Clarity Clear (Clear); Glucose, Urine (Dipstick) Normal (Negative); Ketone, Urine 5 mg/dL (Negative); Leukocyte 25 (Negative); Nitrite Negative (Negative); Protein, Urine (Dipstick) Negative (Neg-Trace); Specific Gravity, Urine 1.015 (1.005-1.030); Urobilinogen Normal mg/dL (Less than 2)
[2022-11-25 17:40] LABS: Mucous/LPF Rare LPF (<2+); RBC/HPF 0-3 HPF (0-3); Squamous Epithelial 0-3 HPF (0-3); Yeast-Budding Rare HPF (None Seen)
[2022-11-25 17:41] LABS: Bacteria/HPF 1+ HPF (None Seen)
[2022-11-25 17:43] LABS: Amphetamine Not Detected (NotDetected); Barbiturates Screen Not Detected (NotDetected); Benzodiazepine Screen Not Detected (NotDetected); Cocaine Metabolite Screen Not Detected (NotDetected); Methadone Not Detected (NotDetected); Methamphetamine Not Detected (NotDetected); Opiate Screen Detected (NotDetected); Oxycodone Screen Not Detected (NotDetected); Phencyclidine (PCP) Not Detected (NotDetected); THC/Cannabinoid Screen Not Detected (NotDetected); Tricyclic Screen Not Detected (NotDetected)
== END 2022-11-25 22:28 ==
LOC: CSHERS 15:22
DX: R53.1 Weakness (principal); R29.6 Repeated falls; E78.5 Hyperlipidemia, unspecified; I12.9 Hypertensive chronic kidney disease with stage 1 through stage 4 chronic kidney disease, or unspecified chronic kidney disease; N18.9 Chronic kidney disease, unspecified; E11.22 Type 2 diabetes mellitus with diabetic chronic kidney disease; Z87.891 Personal history of nicotine dependence
CPT/HCPCS: 36415; 70450; 71045; 72125; 72170; 80053; 80306; 81003; 81015; 84484; 85025; 87077; 87086; 87186; 93005; 96374; 96375; J2270; J2405